=== PATIENT | female | born 1975 | race Caucasian/White ===

== ENCOUNTER 2019-06-10 02:04 | Emergency (ER) | payer BC ==
[~2019-06-10] VITALS: Ht 170.2 cm; Wt 117.9 kg
[~2019-06-10 02:04] MED LIST: FLAGYL250 MG PO; LEVAQUIN500 MG PO; METAMUCIL PACK1 EACH PO; SPIRONOLACTONE25 MG PO
--- OUTSIDE RECORDS SUMMARY | 2019-06-10 02:08 | XMS REPORT | Encounter Summary ---
Author Organization Unknown Address [address] [place] [id number] Phone [phone] Reason for Visit Screening - TB Instructions 1. Tuberculosis screening Tubersol 5 tub. unit/0.1 mL intradermal injection solution PPD (purified protein derivative), skin test Discussion Note: None recorded. Patient educational handouts: No information available. Plan of Care Patient Instructions The patient was advised that the tuberculin skin test must be read within 48-72 hours. If not, the skin test will be considered invalid and will have to be repeated. The patient acknowledged understanding of this advice. Reminders Provider Appointments None recorded. Lab PPD (Purified Protein Derivative), Skin Test 04/27/2017 [facility] Referral None recorded. Procedures None recorded. Surgeries None recorded. Imaging None recorded. Medications Name Start Date acetaminophen 300 mg-codeine 30 mg tablet ciprofloxacin 500 mg tablet cyclobenzaprine 10 mg tablet TAKE 1 TABLET BY MOUTH TWICE A DAY NEEDED FOR MUSCLE SPASMS Fluvirin (PF) 45 mcg (15 mcg x 3)/0.5 mL intramuscular syringe ketorolac 10 mg tablet levofloxacin 500 mg tablet methylprednisolone 4 mg tablets in a dose pack metronidazole 250 mg tablet metronidazole 500 mg tablet MoviPrep 100 g-7.5 g-2.691 g-4.7 g oral powder packet omeprazole 40 mg capsule,delayed release spironolactone 100 mg tablet SSD 1 % topical cream tramadol 50 mg tablet Tubersol 5 tub. unit/0.1 mL intradermal injection solution Inject 0.1 mL by intradermal route. Medications Administered Name Date Tubersol 5 tub. unit/0.1 mL intradermal injection solution Inject 0.1 mL by intradermal route. [id number] Vitals None recorded. Lab Results None recorded. Allergies None recorded. Problems None recorded. Procedures None recorded. Vaccine List None recorded. Social History None recorded. Past Encounters 04/27/2017 Tuberculosis Screening [facility]ANTE [facility]: [address] [facility], [place] [address], Ph. History of Present Illness Screening Request - TB Reported By: Patient Screening Request: BCG No prior BCG vaccination. PPD No past history of postive TB skin test (PPD), No previous severe local reaction to TB skin test (PPD). OTHER No prior vaccines within last month Review of Systems Screening - TB Reported By: Patient Symptoms during past year > 2 weeks, NOT associated with specific illness?: unexplained or low grade fever No fever. night sweats No night sweats. unexplained weight loss > 5 lbs No unexplained weight loss. persistent cough No persistent cough. shortness of breath No shortness of breath. coughing up blood (hemoptysis) No coughing up blood (hemoptysis). unusual fatigue No unusual fatigue. loss of appetite No loss of appetite. swollen neck glands No swollen neck glands Physical Exam Screening Reported By: Patient General Appearance: General: well-developed, well-nourished, no acute distress
--- OUTSIDE RECORDS SUMMARY | 2019-06-10 02:08 | XMS REPORT | Continuity of Care Document ---
Author Author [email or web address] Address Unknown Phone Unavailable Care Team Providers Care Framing Machine Tender Name Role Phone [facility] [email or web address] Information Exchange Unavailable Unavailable Problems Problem Status Onset Date Classification Date Reported Comments Source Tuberculosis screening 04/27/2017 Diagnosis 04/27/2017 [facility] Medications Medication Details Route Status Patient Instructions Ordering Provider Order Date Source Acetaminophen 300 MG / Codeine Phosphate 30 MG Oral Tablet acetaminophen 300 mg-codeine 30 mg tablet Active [facility] Ciprofloxacin 500 MG Oral Tablet ciprofloxacin 500 mg tablet Active [facility] Cyclobenzaprine hydrochloride 10 MG Oral Tablet cyclobenzaprine 10 mg tablet TAKE 1 TABLET BY MOUTH TWICE A DAY NEEDED FOR MUSCLE SPASMS Active [facility] 0.5 ML influenza A virus A/[facility] (H1N1) antigen 0.03 MG/ML / influenza A virus A/ (H3N2) antigen 0.03 MG/ML / influenza B virus B/ antigen 0.03 MG/ML Prefilled Syringe [Fluvirin ] Fluvirin (PF) 45 mcg (15 mcg x 3)/0.5 mL intramuscular syringe Active [facility] Ketorolac Tromethamine 10 MG Oral Tablet ketorolac 10 mg tablet Active [facility] Levofloxacin 500 MG Oral Tablet levofloxacin 500 mg tablet Active [facility] methylprednisolone 4 mg tablets in a dose pack methylprednisolone 4 mg tablets in a dose pack Active [facility] Metronidazole 250 MG Oral Tablet metronidazole 250 mg tablet Active [facility] Metronidazole 500 MG Oral Tablet metronidazole 500 mg tablet Active [facility] Ascorbic Acid 4700 MG / POLYETHYLENE GLYCOL 3350 812521 MG / Potassium Chloride 1015 MG / Sodium Ascorbate 5900 MG / Sodium Chloride 2690 MG / sodium sulfate 7500 MG Powder for Oral Solution [MoviPrep] MoviPrep 100 g-7.5 g-2.691 g-4.7 g oral powder packet Active [facility] Omeprazole 40 MG Delayed Release Oral Capsule omeprazole 40 mg capsule,delayed release Active [facility] Spironolactone 100 MG Oral Tablet spironolactone 100 mg tablet Active [facility] silver sulfadiazine 10 MG/ML Topical Cream [SSD] SSD 1 % topical cream Active [facility] tramadol hydrochloride 50 MG Oral Tablet tramadol 50 mg tablet Active [facility] Purified Protein Derivative of Tuberculin 50 UNT/ML Injectable Solution [Tubersol] Tubersol 5 tub. unit/0.1 mL intradermal injection solution Inject 0.1 mL by intradermal route. Active [facility] Allergies, Adverse Reactions, Alerts No Known Medication Allergies Immunizations No Data Provided for This Section Results No Data Provided for This Section Pathology Reports No Data Provided for This Section Diagnostic Reports No Data Provided for This Section Consultation Notes No Data Provided for This Section Discharge Summaries No Data Provided for This Section History and Physicals No Data Provided for This Section Vital Signs No Data Provided for This Section Encounters Location Location Details Encounter Type Encounter Number Reason For Visit Attending Provider ADM Date [place] Date Status [facility] [place] [id number], [employer]-C: [address] [place] [address], Ph. [phone] [id number] Mary Han 04/27/2017 [facility] Procedures No Data Provided for This Section Assessment and Plan No Data Provided for This Section Plan of Care No Data Provided for This Section Social History No Data Provided for This Section Family History No Data Provided for This Section Advance Directives No Data Provided for This Section Functional Status No Data Provided for This Section
--- OUTSIDE RECORDS SUMMARY | 2019-06-10 02:08 | XMS REPORT | Clinical Summary ---
Author Author [facility] Address Unknown Phone Unavailable Care Team Providers Care Gatekeeper Name Role Phone Asked, No Pcp PCP Unavailable Allergies Comments Active Allergy Reactions Severity Noted Date Sulfa (Sulfonamide 09/11/2016 Antibiotics) Medications End Date Status Medication Sig Dispensed Refills Start Date Active SPIRONOLACTONE ORAL Take by 0 mouth. Active spironolactone Take 100 mg 0 (ALDACTONE) 100 MG tablet by mouth daily. 06/29/2019 Active ondansetron ODT (ZOFRAN Take 1 tablet 6 tablet 0 ODT) 4 MG disintegrating (4 mg total) 9 tablet by mouth every 8 (eight) hours as needed for nausea or vomiting for up to 30 days. 05/30/2019 Discontinued levofloxacin (LEVAQUIN) Take 250 mg 0 250 MG tablet by mouth daily. 05/30/2019 Discontinued metroNIDAZOLE (FLAGYL) Take 250 mg 0 250 MG tablet by mouth 3 (three) times a day. 06/09/2019 ciprofloxacin (CIPRO) 500 Take 1 tablet 20 tablet 0 MG tablet (500 mg 9 total) by mouth 2 (two) times a day for 10 days. 06/09/2019 metroNIDAZOLE (FLAGYL) Take 1 tablet 30 tablet 0 500 MG tablet (500 mg 9 total) by mouth 3 (three) times a day for 10 days. 06/06/2019 acetaminophen-codeine Take 1 tablet 15 tablet 0 (TYLENOL WITH CODEINE #3) by mouth 9 300-30 mg per tablet every 6 (six) hours as needed for mild pain or moderate pain for up to 7 days. Active Problems No known active problems Encounters Care Team Description Date Type Specialty Isreal Soto MD Acute diverticulitis (Primary Dx); Lower abdominal pain 05/30/2019 Emergency Emergency Medicine after 06/09/2018 Family History Medical History Relation Name Comments Diabetes Maternal Grandmother Heart disease Maternal Grandmother Heart disease Mother Ovarian cancer Mother Heart disease Paternal Grandfather Hypertension Paternal Grandfather Heart disease Paternal Grandmother Relation Name Status Comments Maternal Grandmother Mother Paternal Grandfather Paternal Grandmother Social History Date Tobacco Use Types Packs/Day Years Used Never Smoker Alcohol Use Drinks/Week oz/Week Comments Yes ocassionally Sex Assigned at Date Recorded Not on file Industry Job Start Date Occupation Not on file Not on file Not on file Travel End Travel History Travel Start No recent travel history available. Last Filed Vital Signs Time Taken Vital Sign Reading 05/30/2019 11:00 PM CDT Blood Pressure 123/59 05/30/2019 11:00 PM CDT Pulse 63 05/30/2019 8:45 PM CDT Temperature 37.1 C (98.7 F) 05/30/2019 11:00 PM CDT Respiratory Rate 16 05/30/2019 11:00 PM CDT Oxygen Saturation 97% - Inhaled Oxygen - Concentration 05/30/2019 8:43 PM CDT Weight 118 kg (260 lb) 05/30/2019 8:43 PM CDT Height 170.2 cm (5' 7") 05/30/2019 8:43 PM CDT Body Mass Index 40.72 Plan of Treatment Health Maintenance Due Date Last Done Comments INFLUENZA VACCINE 06/24/2019 Procedures Comments Procedure Name Priority Date/Time Associated Diagnosis CT ABDOMEN PELVIS W STAT 05/30/2019 CONTRAST 10:18 PM CDT LACTIC ACID LEVEL, SEPSIS Timed 05/30/2019 - NOW AND REPEAT 2X EVERY 9:55 PM CDT 3 HOURS URINALYSIS SCREEN AND STAT 05/30/2019 MICROSCOPY, WITH REFLEX 9:55 PM CDT TO CULTURE URINE CULTURE STAT 05/30/2019 9:55 PM CDT ESTIMATED GFR STAT 05/30/2019 9:25 PM CDT HCG QUALITATIVE, SERUM STAT 05/30/2019 SCREEN 9:25 PM CDT LIPASE LEVEL STAT 05/30/2019 9:25 PM CDT COMPREHENSIVE METABOLIC STAT 05/30/2019 PANEL 9:25 PM CDT PARTIAL THROMBOPLASTIN STAT 05/30/2019 TIME (PTT) 9:25 PM CDT PROTHROMBIN TIME WITH INR STAT 05/30/2019 9:25 PM CDT HC COMPLETE BLD COUNT STAT 05/30/2019 W/AUTO DIFF 9:25 PM CDT after 06/09/2018 Results * CT Abdomen Pelvis W Contrast (05/30/2019 10:18 PM CDT) Specimen Narrative Performed At EXAMINATION:CT ABDOMEN PELVIS W CONTRAST [facility] CLINICAL HISTORY:llq pain TECHNIQUE: Multiple axial CT images of the abdomen and pelvis are obtained with the use of intravenous contrast. Coronal and sagittal 3-D reconstructions are obtained. CT scans are performed using radiation dose reduction techniques.Technical factors are evaluated and adjusted to ensure appropriate moderation of exposure.Automated dose management technology is applied to adjust radiation exposure while achieving a diagnostic quality image. COMPARISON:June 2014 FINDINGS: Visualized lower lung zones are clear. The gallbladder has been previously removed. The CT appearance of the liver, spleen, adrenal glands and pancreas is unremarkable. The abdominal aorta has no aneurysmal dilatation. There is no retroperitoneal adenopathy. The kidneys do not have any solid renal mass or hydronephrosis. CT Pelvis: There is no evidence of any pneumoperitoneum. Stomach does not have any wall thickening. There is no bowel obstruction nor any dilated loops of bowel. Appendix is unremarkable. The evaluation of the GI tract is limited without any oral contrast. Colon demonstrates focal inflammatory change seen within the sigmoid colon with associated stranding. This most likely represents early diverticulitis or colitis. There is no focal abscess present. There is no focal fluid collection. The descending colon, transverse colon and ascending colon are unremarkable. Small bowel is not dilated. There is no free fluid seen within the abdomen or pelvis. The bladder does not demonstrate any masses. There is no hernia. The osseous structures are unremarkable. IMPRESSION: 1. There is focal stranding and inflammation seen adjacent to the sigmoid colon. This finding is most consistent with diverticulitis. 2. There is no focal intra-abdominal abscess or fluid collection. 3. The descending colon, transverse colon and ascending colon are unremarkable. 4. There is no bowel obstruction nor any dilated loops of bowel. 5. The gallbladder has been previously removed. [id number] Procedure Note Hm Interface, Radiology Results Incoming - 05/30/2019 10:26 PM CDT EXAMINATION: CT ABDOMEN PELVIS W CONTRAST CLINICAL HISTORY: llq pain TECHNIQUE: Multiple axial CT images of the abdomen and pelvis are obtained with the use of intravenous contrast. Coronal and sagittal 3-D reconstructions are obtained. CT scans are performed using radiation dose reduction techniques. Technical factors are evaluated and adjusted to ensure appropriate moderation of exposure. Automated dose management technology is applied to adjust radiation exposure while achieving a diagnostic quality image. COMPARISON: June 2014 FINDINGS: Visualized lower lung zones are clear. The gallbladder has been previously removed. The CT appearance of the liver, spleen, adrenal glands and pancreas is unremarkable. The abdominal aorta has no aneurysmal dilatation. There is no retroperitoneal adenopathy. The kidneys do not have any solid renal mass or hydronephrosis. CT Pelvis: There is no evidence of any pneumoperitoneum. Stomach does not have any wall thickening. There is no bowel obstruction nor any dilated loops of bowel. Appendix is unremarkable. The evaluation of the GI tract is limited without any oral contrast. Colon demonstrates focal inflammatory change seen within the sigmoid colon with associated stranding. This most likely represents early diverticulitis or colitis. There is no focal abscess present. There is no focal fluid collection. The descending colon, transverse colon and ascending colon are unremarkable. Small bowel is not dilated. There is no free fluid seen within the abdomen or pelvis. The bladder does not demonstrate any masses. There is no hernia. The osseous structures are unremarkable. IMPRESSION: 1. There is focal stranding and inflammation seen adjacent to the sigmoid colon. This finding is most consistent with diverticulitis. 2. There is no focal intra-abdominal abscess or fluid collection. 3. The descending colon, transverse colon and ascending colon are unremarkable. 4. There is no bowel obstruction nor any dilated loops of bowel. 5. The gallbladder has been previously removed. [id number] Performing Organization Address City/State/Zipcode Phone Number [facility] [address] [place] [address] * Urinalysis screen and microscopy, with reflex to culture (05/30/2019 9:55 PM CDT) Specimen site Clean catch [facility] Color, UA Yellow [facility] Appearance, UA Clear [facility] Specific 1.023 1.001 - 1.035 [place] gravity, UA [facility] pH, UA 6.0 5.0 - 8.5 [facility] Protein, UA Negative Negative [facility] Glucose, UA Negative Negative [facility] Ketones, UA Negative Negative [facility] Bilirubin, UA Negative Negative [facility] Blood, UA Negative Negative [facility] Nitrite, UA Negative Negative [facility] Urobilinogen, 2.0 (A) <2.0 [facility] Leukocyte Negative Negative [place] esterase, UA [facility] Epithelial Many Few /HPF [place] cells, [facility] WBC, UA 0-5 0 - 4 /HPF [facility] RBC, UA 0-5 0 - 5 /HPF [facility] Bacteria, UA Few None seen [facility] Yeast, UA None seen [facility] Yeast with None seen [place] pseudohyphae, [facility] Specimen Urine Performing Organization Address [facility] [place] [facility] Phone Number [facility] DEPARTMENT [address] [place] [address] PATHOLOGY AND GENOMIC MEDICINE [address] * Lactic acid level, SEPSIS - Now and repeat 2x every 3 hours (05/30/2019 9:55 PM CDT) Lactic acid 1.5 0.5 - 2.2 mmol/L [facility] Specimen Plasma specimen Performing Organization Address City/[facility] Phone Number [facility] DEPARTMENT [place] [address] [place] [address] PATHOLOGY AND GENOMIC MEDICINE [address] * Urine culture (05/30/2019 9:55 PM CDT) Urine culture SEE COMMENTComment: [place] Bacteriuria screen negative. [facility] Specimen Urine Performing Organization Address [facility] [place] [facility] Phone Number [facility] DEPARTMENT [place] [address] [place] [address] PATHOLOGY AND GENOMIC MEDICINE [facility] CLEAR [address] [place] [address]. John [address] * Estimated GFR (05/30/2019 9:25 PM CDT) Pathologist [facility] Estimated GFR 77 mL/min/1.73 m2 [place] Comment: ZARIA CARO [facility] rpretation G1 >=90 Normal or high G2 60-89Mildly decreased [id number] Mildly to moderately decreased [id number] Moderately to severely decreased G4 15-29Severely decreased G5 <15Kidney failure The eGFR was calculated using the Chronic Kidney Disease Epidemiology Collaboration (CKD-EPI) equation. Interpretation is based on recommendations of the National Kidney Foundation-Kidney Disease Outcomes Quality Initiative (NKF-KDOQI) published in 2014. Specimen Plasma specimen Performing Organization Address [facility] [place] [facility] Phone Number [facility] DEPARTMENT OF [address] [place] [address] [place] ZARIA CARO [address] [place] [address]. [address] * Partial thromboplastin time, activated (05/30/2019 9:25 PM CDT) Pathologist [facility] PTT 30.9 23.0 - 36.0 sec [place] Comment: ZARIA CARO PTT therapeutic range for [facility] unfractionated heparin is 61.0-112.0 seconds which corresponds to Anti-Xa 0.3-0.7 U/ml. Specimen Blood Performing Organization Address [facility] Phone Number [facility] DEPARTMENT [address] [place] [address] PATHOLOGY [facility] ZARIA CARO [address] [place] [address] * Prothrombin time with INR (05/30/2019 9:25 PM CDT) Pathologist [facility] Prothrombin 13.0 11.5 - 14.5 sec [place] time MOSQUE VANIA [facility] INR 1.0 [place] Comment: ZARIA CARO The International Normalized [facility] Ratio (INR) is a therapeutic monitoring tool for patients who are stable on oral anticoagulant therapy. An INR of 2.0-3.0 is suggested for deep vein thrombosis/pulmonary embolism. Specimen Blood Performing Organization Address [facility] [place] [facility] Phone Number [facility] DEPARTMENT OF [address] [place] [address] [place] [address] PATHOLOGY AND GENOMIC MEDICINE [facility] [address] FacilityTina [address] * CBC with platelet and differential (05/30/2019 9:25 PM CDT) Pathologist [facility] WBC 9.72 4.50 - 11.00 k/uL [facility] RBC 4.66 4.20 - 5.50 m/uL [facility] HGB 13.9 12.0 - 16.0 g/dL [facility] HCT 41.9 37.0 - 47.0 % [facility] MCV 89.9 82.0 - 100.0 fL [facility] MCH 29.8 27.0 - 34.0 pg [facility] MCHC 33.2 31.0 - 37.0 g/dL [facility] RDW - SD 41.4 37.0 - 55.0 fL [facility] MPV 10.5 8.8 - 13.2 fL [facility] Platelet count 190 150 - 400 k/uL [facility] Nucleated RBC 0.00 /100 WBC [facility] Neutrophils 61.6 39.0 - 69.0 % [facility] Lymphocytes 30.5 25.0 - 45.0 % [facility] Monocytes 6.2 0.0 - 10.0 % [facility] Eosinophils 1.0 0.0 - 5.0 % [facility] Basophils 0.5 0.0 - 1.0 % [facility] Specimen Blood Performing Organization Address City/State/Zipcode Phone Number [facility] DEPARTMENT [address] [place] [address] PATHOLOGY AND GENOMIC MEDICINE [address] * hCG qualitative, serum screen (05/30/2019 9:25 PM CDT) Pathologist [facility] hCG Negative [facility] Specimen Blood Performing Organization Address City/State/[facility] Phone Number [place] [address] [place] [address] PATHOLOGY AND GENOMIC MEDICINE [facility] [address] [address] * Lipase level (05/30/2019 9:25 PM CDT) Lipase 44 13 - 60 U/L [facility] Specimen Plasma specimen Performing Organization Address City/State/Zipcode Phone [place] [facility] [address] [place] [address] PATHOLOGY AND GENOMIC MEDICINE [facility] [id number] [place] [address] [place] [id number] [facility] * Comprehensive metabolic panel (05/30/2019 9:25 PM CDT) Sodium 143 135 - 148 mEq/L [facility] Potassium 4.3 3.5 - 5.0 mEq/L [facility] Chloride 104 98 - 112 mEq/L [facility] CO2 27 24 - 31 mEq/L [facility] Anion gap 12@ANIO 7 - 15 mEq/L [facility] BUN 14 6 - 20 mg/dL [facility] Creatinine 0.90 0.50 - 0.90 mg/dL [facility] Glucose 129 (H) 65 - 99 mg/dL [facility] Calcium 9.7 8.3 - 10.2 mg/dL [facility] Protein 7.4 6.3 - 8.3 g/dL [place] Comment: [facility] 4.6-7.0 g/dL 1 week 4.4-7.6 g/dL 7 months-1year 5.1-7.3 g/dL 1-2 years5.6-7 .5 g/dL >3 years6.0-8 .0 g/dL 18-150 6.3-8.3 g/dL Albumin 4.1 3.5 - 5.0 g/dL [facility] A/G ratio 1.2 0.7 - 3.8 [facility] Alkaline 51 35 - 104 U/L [place] phosphatase [facility] AST 16 10 - 35 U/L [facility] ALT 16 5 - 50 U/L [facility] Total bilirubin 0.2 0.0 - 1.2 mg/dL [facility] Specimen Plasma specimen Performing Organization Address City/State/Zipcode [place] [address] [place] [address] PATHOLOGY AND GENOMIC MEDICINE PETAR SHELDON [place] [address] [place] [address] [facility] after 06/09/2018 Insurance Type Payer Benefit Subscriber ID Effective Phone Address Plan / Dates Group PPO BCBS BCBS xxxxxxxxxxxx 2016- CHOICE Present PPO/MARIO DUMONT PPO Advance Directives Patient has advance care planning documents on file. For more information, talya lloyd contact: Petar Sheldon [address] [place] [address]
--- OUTSIDE RECORDS SUMMARY | 2019-06-10 02:08 | XMS REPORT | Summary of Care ---
Author Author LIYAH BUTTS M.D. Organization Unknown Address Unknown Phone Unavailable Care Team Providers Care Electrical Checkout Mechanic Name Role Phone LIYAH BUTTS M.D. 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 Procedures Procedure Dates Details History of Hysterectomy Completed History of Cholecystectomy Completed History of Section Completed Immunization Name Dates Details Immunizations not documented Family History Name Dates Details Family history of malignant neoplasm (V16.9, Z80.9) Comments: Paternal Relatives Status: Active Name Dates Details Family history of malignant neoplasm of vagina (V16.49, Z80.49) Status: Active Name Dates Details Family history of malignant neoplasm of cervix (V16.49, Z80.49) Status: Active Family history of myocardial infarction (V17.3, Z82.49) Status: Active Name Dates Details Family history of lung cancer (V16.1, Z80.1) Status: Active Family history of malignant neoplasm (V16.9, Z80.9) Status: Active Social History Name Dates Details - Status: Name Dates Details Never smoker Vital Signs Date Test Result Details 31-Aug-20189:58 BP Systolic 122 mm[Hg] Status: BP Diastolic 81 mm[Hg] Status: Height 68 in Status: Weight 258 lb Status: Body Mass Index Calculated 39.23 kg/m2 Status: Body Surface Area Calculated 2.28 m2 Status: Temperature 98.4 f Status: Heart Rate 62 /min Status: Results Date Description Value Details Results not documented Plan of Care Name Dates Details Planned Observations Planned Goals not documented Interventions Provided Plan* Vit E and evening primrose oil * Continue yearly screening * Follow up prn Instructions Name Dates Details Instructions not documented Encounters Appointment; LIYAH BUTTS M.D. Encounter Diagnosis: Problem not documented On: 31-Aug-2018 9:30
--- NOTE | 2019-06-10 02:25 | NUR ---
PT STATES SHE IS UNABLE TO HAVE BM R/T PAIN AND "IT JUST WONT COME OUT". PT GIVEN INSTRUCTIONS ON HOW TO PREVENT CONSTIPATION IN THE FUTURE. PT PLACE ON LEFT SIDE WITH RIGHT KNEE BENT, PT MANUALLY DISIMPACTED USING K-Y JEL, PT TOLORATED WELL, LARGE AMOUNT OF HARD STOOL REMOVED. PT THEN ABLE TO COMPLETE BM IN BATHROOM UNASSISTED. PT STATES SHE FEELS SO MUCH BETTER AND SHE IS ABLE TO SIT DOWN WITHOUT PAIN.
== END 2019-06-10 02:56 | disposition home or self-care (01) ==
LOC: FSED 02:04
DX: K59.00 Constipation, unspecified (principal); K62.89 Other specified diseases of anus and rectum
CPT/HCPCS: 99283

== ENCOUNTER 2019-09-22 21:08 | Emergency (ER) | payer BC, OTHER ==
[~2019-09-22] VITALS: Ht 170.2 cm; Wt 122.5 kg
--- NOTE | 2019-09-22 23:45 | Diagnostic Imaging Report ---
X-ray left knee 3 views HISTORY: Pain. Fall COMPARISON: None available. FINDINGS: Bones: No acute displaced fracture. Osseous alignment is within normal limits. Joints: The joint spaces are well-maintained. Soft tissues: The soft tissues appear unremarkable. IMPRESSION: No acute radiographic osseous abnormality. Signed by: Garcia Moses DO on 09/22/2019 11:41 PM
--- NOTE | 2019-09-22 23:51 | Diagnostic Imaging Report ---
Lumbar Spine Radiographs: 3 views HISTORY: Pain. COMPARISON: None available. DISCUSSION: Some of the osseous structures are partially obscured by stool and bowel gas. There are five non-rib bearing lumbar vertebral bodies. The alignment of the spine is within normal limits. No displaced fracture or compression deformity is identified. Disc Spaces: The disc spaces are well maintained. Multilevel minimal disc osteophytes. Facets: The facet joints are unremarkable. Surgical clips in the right upper quadrant. Mild degenerative changes in the sacroiliac joints. IMPRESSION: No acute radiographic abnormality. Mild degenerative changes in the lumbar spine and sacroiliac joints. Signed by: Garcia Moses DO on 09/22/2019 11:48 PM
--- NOTE | 2019-09-22 23:52 | Diagnostic Imaging Report ---
X-ray right femur 3 views HISTORY: Pain. COMPARISON: None available. FINDINGS: Bones: No acute displaced fracture. Osseous alignment is within normal limits. Joints: The joint spaces are well-maintained. Mild degenerative changes in the right knee, hip and pelvis. Soft tissues: The soft tissues appear unremarkable. IMPRESSION: No acute radiographic abnormality. Mild degenerative changes in the right knee, hip and pelvis. Signed by: Garcia Moses DO on 09/22/2019 11:49 PM
== END 2019-09-22 23:32 | disposition home or self-care (01) ==
LOC: FSED 21:08
DX: S33.5XXA Sprain of ligaments of lumbar spine, initial encounter (principal); S80.02XA Contusion of left knee, initial encounter; W18.30XA Fall on same level, unspecified, initial encounter; Y92.008 Other place in unspecified non-institutional (private) residence as the place of occurrence of the external cause
CPT/HCPCS: 72100; 99283

== ENCOUNTER 2022-05-21 22:20 | Emergency (ER) | payer OTHER ==
[~2022-05-21] VITALS: Ht 170.2 cm; Wt 122.5 kg
[2022-05-21] MEDS ORDERED: KETOROLAC TROMETHAMINE 30 MG/ML VIAL IM STA (22:32)
[2022-05-21] MEDS ORDERED: PROMETHAZINE HCL (IM) 25 MG/ML VIAL IM ONE (22:45)
[2022-05-21] MEDS ORDERED: DICYCLOMINE HCL 20 MG/2 ML VIAL IM ONE (22:45)
[2022-05-21 23:24] LABS: BASOPHILS % 0.3 % (0.0-1.0); EOSINOPHILS # (AUTO) 0.1 (0.0-0.4); EOSINOPHILS % 0.6 % (0.0-6.0); HEMATOCRIT 41.4 % (34.2-44.1); HEMOGLOBIN 13.7 g/dL (12.0-16.0); LYMPHOCYTES # (AUTO) 1.5 (1.0-3.2); LYMPHOCYTES % 17.1 % (18.0-39.1); MEAN CORPUSCULAR HEMOGLOBIN 30.1 pg (28-32); MEAN CORPUSCULAR HGB CONC 33.1 g/dL (31-35); MONOCYTES # (AUTO) 0.6 (0.2-0.8); MONOCYTES % 6.2 % (4.4-11.3); NEUTROPHILS # (AUTO) 6.8 (2.1-6.9); NEUTROPHILS % 75.6 % (38.7-80.0); PLATELET COUNT 195 x10e3/uL (140-360); RED BLOOD COUNT 4.55 x10e6/uL (3.6-5.1); RED CELL DISTRIBUTION WIDTH 12.3 % (11.7-14.4)
[2022-05-21 23:41] LABS: LIPASE 23 U/L (8-78)
[2022-05-21] MEDS ORDERED: DICYCLOMINE HCL20 MG PO (23:45)
[2022-05-21 23:48] LABS: ALBUMIN 3.3 g/dL (3.5-5.0); ALBUMIN/GLOBULIN RATIO 0.9 (0.8-2.0); ANION GAP 14.7 mmol/L (8-16); CALCIUM 8.7 mg/dL (8.4-10.2); CREATININE, SERUM 1.1 mg/dL (0.57-1.11); POTASSIUM 3.7 mmol/L (3.5-5.1)
== END 2022-05-22 00:10 | disposition home or self-care (01) ==
LOC: ER 22:27
DX: R10.30 Lower abdominal pain, unspecified (principal); K57.32 Diverticulitis of large intestine without perforation or abscess without bleeding; R11.0 Nausea; R50.9 Fever, unspecified
CPT/HCPCS: 36415; 80053; 83690; 84702; 85025; 99284; J0500; J1885; J2550